=== PATIENT | male | born 1970 | race Two or more races ===

== ENCOUNTER 2024-08-18 17:13 | Emergency (ER) | payer BC, SELFPAY ==
[2024-08-18 17:19] VITALS: BP 135/79; PULSE 77; RESP 20; TEMP 37.4; O2SAT 95
--- NOTE | 2024-08-18 17:38 | PD.EDRME ---
Rapid Medical Screening Exam [facility] Arrival date/time: 08/18/24 17:13 Headache: Bilateral temporal poking sensation HPI ongoing intermittently for the past 3 days with persistent nausea particularly when drinking liquids, and light sensitivity. Waxes and wanes has a history of vestibular migraines and takes sumatriptan for it which did not provide the patient with relief. Onset after being in the sun 3 days ago. Patient is concerned about the headache and possible dehydration. Chief Complaint: Headache Time Seen by Provider: 08/18/24 17:37 Vital signs: Vital Signs Temperature 99.4 F 08/18/24 17:19 Pulse Rate 77 08/18/24 17:19 Respiratory Rate 20 08/18/24 17:19 Blood Pressure 135/79 H 08/18/24 17:19 Pulse Oximetry (%) 95 08/18/24 17:19 Oxygen Delivery Method Room Air 08/18/24 17:19
[2024-08-18 17:59] LABS: Basophils % (Auto) 0 % (0-2.5); Eosinophils % (Auto) 0 % (0-10); Immature Granulocytes % (Auto) 0 % (0-0); Immature Granulocytes Auto 0.05 Thou/mm3 (0.00-0.00); Lymphocytes # (Auto) 1.6 Thou/mm3 (1.0-4.8); Lymphocytes % (Auto) 13 % (10-50); Mean Corpuscular HGB Conc 34.9 g/dl (31.0-37.0); Mean Corpuscular Hemoglobin 30.1 pg (25.0-35.0); Mean Corpuscular Volume 86 fL (80-100); Monocytes # (Auto) 0.8 Thou/mm3 (0.0-0.8); Monocytes % (Auto) 6 % (0-12); Neutrophils # (Auto) 10.2 Thou/mm3 (1.8-7.7); Neutrophils % (Auto) 80 % (37-80); Nucleated Red Blood Cell % 0 /100 WBC (0); Platelet Count 294 Thou/mm3 (140-440); RDW Standard Deviation 39.5 fL (35.1-43.9); Red Blood Count 4.98 Miln/mm3 (4.50-5.90); White Blood Count 12.7 Thou/mm3 (3.8-10.6)
[2024-08-18 18:23] LABS: Alanine Aminotransferase 38 U/L (10-49); Albumin, Serum 4.7 gm/dL (3.5-5.0); Albumin/Globulin Ratio 1.4 (1.2-2.2); Alkaline Phosphatase 77 U/L (46-116); Anion Gap 11 (7-16); Aspartate Amino Transferase 29 U/L (0-34); BUN/Creatinine Ratio 17 Ratio (12-20); Bilirubin,Total 0.6 mg/dL (0.3-1.2); Blood Urea Nitrogen 17 mg/dL (9-23); Carbon Dioxide 25.2 mMol/L (20.0-31.0); Chloride 102 mMol/L (98-107); Globulin 3.4 gm/dL (2.3-3.5); Glucose 118 mg/dL (74-106); Osmolality,Calculated 278 (275-295); Potassium 4.4 mMol/L (3.4-5.1); Sodium 138 mMol/L (136-145); Total Protein 8.1 gm/dL (5.7-8.2); eGFR > 60 See Note
--- NOTE | 2024-08-18 19:22 | PD.EDHA ---
ED Headache RME/HPI General Chief Complaint: Headache Stated Complaint: QUINTERO, N/V Time Seen by Provider: 08/18/24 17:37 Arrival date/time: 08/18/24 17:13 Limitations: no limitations RME / HPI RME / HPI Narrative: Dr. West?s Main ED Evaluation on 08/18/24 at 1947: 53-year-old male presents with a 3-day history of intermittent bilateral temporal headache, described as a ?poking? sensation. Associated symptoms include persistent nausea, worsened with oral intake, and photophobia. Headache waxes and wanes, without significant relief from his prescribed sumatriptan used to treat his migraine headaches. He has a known history of vestibular migraines. Patient reports symptoms began after prolonged sun exposure 3 days ago. The patient denies this being the worst headache of his life. Related Data Home Medications ?Medication ?Instructions ?Recorded ?Confirmed omeprazole 20 mg capsule,delayed 20 mg PO QDAY ##0 12/14/16 02/21/23 release ibuprofen 800 mg tablet 800 mg PO TID PRN Pain 02/18/23 02/21/23 Held on 02/21/23. Instructions: Resume on 02/24/23. lisinopril 20 1 tab PO DAILY UD 02/18/23 02/21/23 mg-hydrochlorothiazide 12.5 mg tablet sumatriptan succinate 100 mg tablet 100 mg PO DAILY 02/18/23 02/18/23 tamsulosin 0.4 mg capsule 1 mg PO DAILY 02/18/23 02/21/23 Previous Rx's ?Medication ?Instructions ?Recorded meclizine 25 mg tablet 25 mg PO [id number] PRN dizziness #10 06/06/18 tabs Allergies Allergy/AdvReac Type Severity Reaction Status Date / Time morphine Allergy Vomiting Verified 02/21/23 07:28 codeine AdvReac Mild Nausea/Vomi Verified 02/21/23 07:28 tiing hydrocodone bit AdvReac Unknown Nausea/Vomi Verified 02/21/23 07:28 tiing Review of Systems Review of Systems Systems Reviewed: All systems reviewed, normal except as documented Past Medical History Past Medical History NEUROLOGIC: Positive Neurological Disorders and Migraine; Negative Seizures CARDIAC: Positive Cardiac Disorders and Hypertension; Negative Congestive Heart Failure RESPIRATORY: Negative Chronic Obstructive Pulmonary Disease (COPD) or Asthma GASTROINTESTINAL: Positive Gastrointestinal Disorders and Gastroesophageal Reflux Disease (heartburn) GENITOURINARY: Positive Kidney Stones; Negative Genitourinary Disorders or Renal Disease REPRODUCTIVE: Negative Breast Cancer MUSCULOSKELETAL: Positive Degenerative Disk Disease; Negative Musculoskeletal Disorders ENT: Positive Ear Infection; Negative Eye Prosthesis ENDOCRINE: Negative Endocrine Disorders, Diabetes Mellitus Type 1 or Diabetes Mellitus Type 2 HEMATOLOGIC: Negative Blood Disorders or Sickle Cell Disease OTHER HISTORY: Positive Chicken Pox; Negative Hospitalization, Autoimmune Disease, Falls, Blood Transfusions, Anesthesia Reactions, Organ Transplant, MRSA, VRSA, Vancomycin-Resistant Enterococci, Clostridium Difficile, Cancer or Breast Cancer Family History FAMILY HISTORY: Positive Family Cardiac Disorders and Family Surgery; Negative Family Cancer or Family Anesthesia Reaction Surgical History SURGICAL: Positive Ear Surgery, Tympanostomy Tube and Nose Surgery; Negative Cardiac Surgery, Endocrine Surgery, Abdominal Surgery, Joint Replacement, Neurologic Surgery, Mastectomy, Vasectomy or Organ Transplant Social History SMOKING STATUS: Never smoker ED Exam General Limitations: Present no limitations General appearance: Present alert and in no apparent distress Head Head exam: Present atraumatic Eye Eye exam: Present normal appearance, PERRL and EOMI ENT ENT exam: Present normal exam, normal oropharynx and mucous membranes moist Neck Neck exam: Present normal inspection, full ROM and trachea midline Chest Chest inspection: Present normal inspection and symmetric chest wall rise Respiratory Respiratory exam: Present normal lung sounds bilaterally Cardiovascular Cardiovascular exam: Present regular rate, normal rhythm and normal heart sounds Abdominal Exam Abdominal exam: Present soft and normal bowel sounds Extremities Exam Extremities exam: Present normal inspection and full ROM Back Exam Back exam: Present normal inspection and full ROM Neurological Exam Neurological exam: Present alert, oriented X3 and CN II-XII intact Psychiatric Psychiatric exam: Present normal affect and normal mood Skin Skin exam: Present warm, dry, intact and normal color Course Course Course Narrative: Patient triaged upon arrival. RME completed and initial orders placed by midlevel provider, including labs and medications. 1913 ? Patient moved to Room 17. 1919 ? Chart and preliminary lab results reviewed; IV fluids ordered. 1946 ? Patient evaluated by me. Quality Measures none Orders Category Date Time Status Saline [Insert IV] NOW Care 08/18/24 17:37 Completed CBC Stat Lab 08/18/24 17:49 Completed CMP [Comprehensive Metabolic Panel] Stat Lab 08/18/24 17:49 Completed DiphenhydrAMINE INJ [Benadryl Inj] Med 08/18/24 17:37 Discontinued 25 mg IVP X1 ONE Ketorolac Inj [Toradol Inj] Med 08/18/24 17:37 Discontinued 30 mg IVP X1 ONE Prochlorperazine Inj [Compazine Inj] Med 08/18/24 17:37 Discontinued 10 mg IV X1 ONE Sodium Chloride 0.9% 1000 ml [Ns] 1,000 ml Med 08/18/24 19:20 Discontinued IV 999 mls/hr Vital Signs Vital signs: Vital Signs Temperature 99.4 F 08/18/24 17:19 Pulse Rate 77 08/18/24 17:19 Respiratory Rate 20 08/18/24 17:19 Blood Pressure 135/79 H 08/18/24 17:19 Pulse Oximetry (%) 95 08/18/24 17:19 Oxygen Delivery Method Room Air 08/18/24 17:19 Headache MDM Narrative MDM Narrative:: 53-year-old male with history of vestibular migraines presents with a 3-day history of bilateral temporal headache, nausea worsened by oral intake, and photophobia. No relief with home sumatriptan. Denies worst headache of life. Concerned about dehydration. Photophobia is noted. Differential diagnoses include typical migraine, worsening migraine, dehydration, and electrolyte imbalance. The patient does not report this as the worst headache of his life, r/o subarachnoid hemorrhage. Placed in ED observation for monitoring and symptomatic management. 2253 Patient re-evaluated, in no acute distress. Headache has improved. Stable for discharge. Patient amendable to plan. Scribe Attestation: Carmelo Saba am scribing for and in the presence of Dr. West. Provider Notation: Although this document has been carefully reviewed, there may still be some phonetic and other typographical errors. These errors are purely grammatical due to imperfections in the software program and should not be construed in any way to compromise the substance of the patient's medical care during this visit. Patient data External records reviewed:: [facility] previous records Clinical information provided by:: patient Social determinants that could affect healthcare access:: none Patient has the following chronic illnesses:: see PMH How is presenting disease/condition affected by chronic disease/condition?: exacerbated by Evaluation data The following diagnostics were reviewed and interpreted by me:: lab results Lab and/or radiology exams considered but not ordered:: n/a Interpretation Summary: WBC 12.7 Medications / Prescriptions Medications or Prescriptions considered but not ordered:: n/a Medication administrations:: Medication Administration History Discontinued Medications Diphenhydramine HCl (Diphenhydramine Inj 50 Mg/Ml Vial) 25 mg IVP X1 ONE Stop: 08/18/24 17:38 Last Admin: 08/18/24 20:03 Dose: 25 mg Documented By: CCT Sodium Chloride (Ns) 1,000 mls @ 999 mls/hr IV .Q1H1M ONE Stop: 08/18/24 20:20 Last Infusion: 08/18/24 21:11 Dose: Infused Documented By: Admin: 08/18/24 20:04 Dose: 999 mls/hr Documented By: CCT Ketorolac Tromethamine (Ketorolac Inj 30 Mg/Ml Vial) 30 mg IVP X1 ONE Stop: 08/18/24 17:38 Last Admin: 08/18/24 20:04 Dose: 30 mg Documented By: CCT Prochlorperazine Edisylate (Prochlorperazine Inj 5 Mg/Ml Vial 2 Ml) 10 mg IV X1 ONE; Protocol Stop: 08/18/24 17:38 Last Admin: 08/18/24 20:04 Dose: 10 mg Documented By: CCT as above, if any Consultations Consultation(s) initiated? (list below): No Diagnosis Differential diagnosis headache: other (see MDM) Most likely diagnosis given after review of the tests above:: see clinical impression below Admission Indicated Admission indicated?: not indicated Admission Request Was there a request for admission?: No Disposition Plan Disposition Plan: Discharge Discharge Attestation Discharge Attestation: The patient and all family members were given an opportunity to ask questions and understood the discharge instructions. Discharge instructions specifically effects, indications for sooner follow up or return to the emergency department, and the expected course of current diagnosis. Patient condition: Stable Discharge Plan Plan Patient Disposition: HOME (Self Care) Patient condition on transfer: Stable Prescriptions/Referrals Prescriptions/Med Rec: No Action omeprazole 20 MG capsule,delayed release(DR/EC) 20 mg PO QDAY Qty: 0 meclizine 25 mg tablet 25 mg PO [id number] PRN (Reason: dizziness) Qty: 10 0RF sumatriptan succinate 100 mg tablet 100 mg PO DAILY Patient Comments: PLEASE SEE ATTACHED FOR DETAILED DIRECTIONS lisinopril-hydrochlorothiazide 20-12.5 mg tablet 1 tab PO DAILY UD Patient Comments: TAKE 1 TABLET BY MOUTH EVERY DAY ibuprofen 800 mg tablet 800 mg PO TID PRN (Reason: Pain) tamsulosin 0.4 mg capsule 1 mg PO DAILY Referrals: Santi Bruce MD [Primary Care Provider] - In 1 week Problem List Clinical Impression: Headache, migraine Patient/Caregiver Discharge Instructions Education Materials: ED Headache, Migraine, Classic Additional Instructions: Please take your medications as per your primary care for your migraine headaches that you have at home. Return to emergency department for any worsening symptoms or any other concerns You can take [id number] Tylenol 650 mg as needed in addition to your regular medications. For the next 48 hours. Stay hydrated with Pedialyte and/or Gatorade. Print Language: Namibian Stand Alone Forms: [facility] Info., Patient Portal Info Letter
[2024-08-18 19:26] VITALS: BP 136/77; PULSE 75; RESP 18; TEMP 37.2; O2SAT 92
[2024-08-18] MEDS: DiphenhydrAMINE INJ 50 MG/ML VIAL 25 MG IVP (20:03)
[2024-08-18] MEDS: KETOROLAC INJ 30 MG/ML VIAL IVP (20:04)
[2024-08-18] MEDS: PROCHLORPERAZINE INJ 5 MG/ML VIAL 2 ML 10 MG IV (20:04)
[2024-08-18] MEDS: SODIUM CHLORIDE 0.9% 1000 ML 1,000 ML 999 ML IV (20:04)
[2024-08-18 22:54] VITALS: BP 123/70; PULSE 61; RESP 16; TEMP 36.9; O2SAT 94
== END 2024-08-18 23:25 | disposition home or self-care (01) ==
PROVIDERS: Registered Nurse General Practice; Emergency Provider Emergency Medicine; PCP Family Medicine
DX: G43.909 Migraine, unspecified, not intractable, without status migrainosus (principal)
CPT/HCPCS: 36415; 80053; 85025; 96361; 96374; 96375; 99284; J0780; J1200; J1885; J7030

== ENCOUNTER 2024-08-20 04:05 | Emergency (ER) | payer BC, SELFPAY ==
[2024-08-20 04:08] VITALS: BMI 44.2
[2024-08-20 04:18] VITALS: BP 137/88; PULSE 68; RESP 18; TEMP 36.8; O2SAT 96
--- NOTE | 2024-08-20 04:41 | PD.EDRME ---
Rapid Medical Screening Exam RME Arrival date/time: 08/20/24 04:05 53 year old male present to ED for c/o of headache for 3 days I have greeted and performed a focused initial assessment of this patient. A comprehensive ED assessment and evaluation of the patient, analysis of all test results, and completion of the medical decision making process will be conducted by additional ED providers. Chief Complaint: Headache Time Seen by Provider: 08/20/24 04:12 Vital signs: Vital Signs Temperature 98.2 F 08/20/24 04:18 Pulse Rate 68 08/20/24 04:18 Respiratory Rate 18 08/20/24 04:18 Blood Pressure 137/88 H 08/20/24 04:18 Pulse Oximetry (%) 96 08/20/24 04:18 Oxygen Delivery Method Room Air 08/20/24 04:18
--- NOTE | 2024-08-20 04:42 | XR_ITS ---
Examination: CT brain head without contrast. 2-D sagittal coronal reconstructions Date and time of exam:August 20, 2024 at 0516 hours Comparison June 06, 2018 INDICATIONS: Headaches beginning 4 days ago with nausea vomiting CTDI: vol (mGy):60.4 DLP: (mGycm):1213 Technique: Multiple CT axial sections of the brain have been obtained, 5 mm slice thickness. Contrast has not been administered. 2-D sagittal, coronal reconstructions have been obtained Low dose protocols were performed. One or more of the following dose reduction techniques were used; automated exposure control, adjustment of the mA and/or KV according to patient size, use of iterative reconstruction technique. 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
--- NOTE | 2024-08-20 04:43 | EKG_ITS ---
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
[2024-08-20 05:44] VITALS: BP 126/57; PULSE 65; RESP 18; TEMP 36.7; O2SAT 95
--- NOTE | 2024-08-20 05:45 | PC.NURSE ---
PT ALERT AND ORIENTED CAME TO ER WITH FROM HOME FOR COMPLAINTS OF HEADACHE THAT STARTED 3 DAYS AGO WITH NAUSEA AND VOMITING. PT REPORTS HEADACHE GOT WORSE TODAY, HAS TINGLING SENSATION TO BILATERAL CHRISTIANITY AREA. ALSO COMPLAINTS OF WEAKNESS ON LEFT SIDE. PT REPORTS HX OF MIGRAINES, STATES MEDICATION IS NOT HELPING.
[2024-08-20 05:59] LABS: Basophils % (Auto) 0 % (0-2.5); Eosinophils % (Auto) 0 % (0-10); Hematocrit 44.1 % (41.0-53.0); Hemoglobin 15.8 g/dL (13.5-16.0); Immature Granulocytes % (Auto) 0 % (0-0); Immature Granulocytes Auto 0.06 Thou/mm3 (0.00-0.00); Lymphocytes # (Auto) 0.7 Thou/mm3 (1.0-4.8); Lymphocytes % (Auto) 5 % (10-50); Mean Corpuscular HGB Conc 35.8 g/dl (31.0-37.0); Mean Corpuscular Hemoglobin 30.2 pg (25.0-35.0); Mean Corpuscular Volume 84 fL (80-100); Monocytes # (Auto) 0.6 Thou/mm3 (0.0-0.8); Monocytes % (Auto) 4 % (0-12); Neutrophils # (Auto) 12.7 Thou/mm3 (1.8-7.7); Neutrophils % (Auto) 90 % (37-80); Nucleated Red Blood Cell % 0 /100 WBC (0); Platelet Count 285 Thou/mm3 (140-440); RDW Standard Deviation 38.9 fL (35.1-43.9); Red Blood Count 5.24 Miln/mm3 (4.50-5.90)
[2024-08-20 06:05] LABS: Sed Rate (ESR) 21 mm/hr (0-20)
[2024-08-20 06:34] VITALS: BP 139/70; PULSE 68; RESP 20; TEMP 36.8; O2SAT 95
[2024-08-20 06:34] LABS: Alanine Aminotransferase 34 U/L (10-49); Albumin, Serum 4.8 gm/dL (3.5-5.0); Albumin/Globulin Ratio 1.4 (1.2-2.2); Alkaline Phosphatase 84 U/L (46-116); Anion Gap 9 (7-16); Aspartate Amino Transferase 24 U/L (0-34); BUN/Creatinine Ratio 16 Ratio (12-20); Bilirubin,Total 0.6 mg/dL (0.3-1.2); Blood Urea Nitrogen 18 mg/dL (9-23); C-Reactive Protein 1.4 mg/dL (0.0-0.9); Calcium 9.5 mg/dL (8.3-10.6); Calcium (Corrected) 9.5 mg/dL (8.5-10.1); Chloride 103 mMol/L (98-107); Creatinine (Component) 1.1 mg/dL (0.6-1.3); Estimated Creatinine Clearance 89.4 mL/min (>60); Globulin 3.4 gm/dL (2.3-3.5); Glucose 137 mg/dL (74-106); Osmolality,Calculated 277 (275-295); Sodium 137 mMol/L (136-145); Total Protein 8.2 gm/dL (5.7-8.2); Troponin I < 0.020 ng/mL (0.0-0.045); eGFR > 60 See Note
--- NOTE | 2024-08-20 06:37 | PD.EDHA ---
ED Headache RME/HPI General Chief Complaint: Headache Stated Complaint: headache Time Seen by Provider: 08/20/24 04:12 Arrival date/time: 08/20/24 04:05 RME / HPI RME / HPI Narrative: 08/20/24 04:05 53 year old male present to ED for c/o of headache for 3 days I have greeted and performed a focused initial assessment of this patient. A comprehensive ED assessment and evaluation of the patient, analysis of all test results, and completion of the medical decision making process will be conducted by additional ED providers. DR. PLASCENCIA MAIN ED EVALUATION: 53-year-old male patient complaining of right sided headache and subjective left-sided weakness. Patient states he has been seen for similar symptoms associated with migraine headaches. He is on sumatriptan and sees a neurologist at [facility]. Seen here yesterday for headache, treated and discharged. Returning today with worsening headache. Denies vomiting. States he feels weak on the left side including upper and lower extremities. He states he has had these symptoms before which were previously attributed to migraine headache. Denies vision changes. Patient is right hand dominant. Related Data Home Medications ?Medication ?Instructions ?Recorded ?Confirmed omeprazole 20 mg capsule,delayed 20 mg PO QDAY ##0 12/14/16 02/21/23 release ibuprofen 800 mg tablet 800 mg PO TID PRN Pain 02/18/23 02/21/23 Held on 02/21/23. Instructions: Resume on 02/24/23. lisinopril 20 1 tab PO DAILY UD 02/18/23 02/21/23 mg-hydrochlorothiazide 12.5 mg tablet sumatriptan succinate 100 mg tablet 100 mg PO DAILY 02/18/23 02/18/23 tamsulosin 0.4 mg capsule 1 mg PO DAILY 02/18/23 02/21/23 Previous Rx's ?Medication ?Instructions ?Recorded meclizine 25 mg tablet 25 mg PO [id number] PRN dizziness #10 06/06/18 tabs Allergies Allergy/AdvReac Type Severity Reaction Status Date / Time codeine AdvReac Mild Nausea/Vomi Verified 08/20/24 07:56 tiing hydrocodone bit AdvReac Mild Nausea/Vomi Verified 08/20/24 07:56 tiing morphine AdvReac Mild Vomiting Verified 08/20/24 07:56 Review of Systems Review of Systems Systems Reviewed: All systems reviewed, normal except as documented Past Medical History Past Medical History NEUROLOGIC: Positive Neurological Disorders and Migraine; Negative Seizures CARDIAC: Positive Cardiac Disorders and Hypertension; Negative Congestive Heart Failure RESPIRATORY: Negative Chronic Obstructive Pulmonary Disease (COPD) or Asthma GASTROINTESTINAL: Positive Gastrointestinal Disorders and Gastroesophageal Reflux Disease GENITOURINARY: Positive Kidney Stones; Negative Genitourinary Disorders or Renal Disease REPRODUCTIVE: Negative Breast Cancer MUSCULOSKELETAL: Positive Degenerative Disk Disease; Negative Musculoskeletal Disorders ENT: Positive Ear Infection; Negative Eye Prosthesis ENDOCRINE: Negative Endocrine Disorders, Diabetes Mellitus Type 1 or Diabetes Mellitus Type 2 HEMATOLOGIC: Negative Blood Disorders or Sickle Cell Disease OTHER HISTORY: Positive Chicken Pox; Negative Hospitalization, Autoimmune Disease, Falls, Blood Transfusions, Anesthesia Reactions, Organ Transplant, MRSA, VRSA, Vancomycin-Resistant Enterococci, Clostridium Difficile, Cancer or Breast Cancer Family History FAMILY HISTORY: Positive Family Cardiac Disorders and Family Surgery; Negative Family Cancer or Family Anesthesia Reaction Surgical History SURGICAL: Positive Ear Surgery, Tympanostomy Tube and Nose Surgery; Negative Cardiac Surgery, Endocrine Surgery, Abdominal Surgery, Joint Replacement, Neurologic Surgery, Mastectomy, Vasectomy or Organ Transplant Social History SMOKING STATUS: Never smoker SUBSTANCE USE: does not use ALCOHOL: Never ED Exam Narrative Physical exam: GENERAL APPEARANCE: alert and oriented x 4, well-developed, well-nourished, appears in pain HEENT: Normocephalic, atraumatic; pupils equal, round, reactive to light; EOMI; mucous membranes pink, moist; oropharynx clear NECK: Supple LUNGS: CTABL; no wheezes, no rales, no rhonchi HEART: Regular rate, regular rhythm; normal S1, S2; no murmurs ABDOMEN: non distended; normal BS; soft, no tenderness, no guarding, no rebound; no masses, no organomegaly, no hernia BACK: no CVA tenderness EXTREMITIES: atraumatic; no edema NEUROLOGIC: awake; alert and oriented x4; cranial nerves II-XII grossly intact; patient lying in left lateral decubitus position with Grammas complaining of severe headache; strength 5 out of 5 upper extremities; clonus 3 beats bilaterally lower extremities; unable to stand patient at this time for lower extremity examination and gait examination secondary to severe headache PSYCHIATRIC: appropriate mood and affect SKIN: warm, dry, normal color; no rashes Course Course Course Narrative: Plan for additional neurologic examination after pain medications administered Quality Measures none Orders Category Date Time Status Bedside COVID-19 Antigen Test NOW Care 08/20/24 04:42 Completed Bedside Influenza A&B Antigen Test NOW Care 08/20/24 04:42 Completed EKG (ED ONLY) *Do not use* NOW Care 08/20/24 04:43 Completed IV [Insert IV] NOW Care 08/20/24 05:59 Completed Referral - Magistrate Judge Stat Cons 08/20/24 06:[address] head/brain wo con Stat Exams 08/20/24 04:42 Completed EKG (ED Only) Stat Exams 08/20/24 04:43 Draft CBC Stat Lab 08/20/24 05:53 Completed CMP [Comprehensive Metabolic Panel] Stat Lab 08/20/24 05:53 Completed CRP [C-Reactive Protein] Stat Lab 08/20/24 05:53 Completed ESR [Sed Rate (ESR)] Stat Lab 08/20/24 05:53 Completed Troponin I Stat Lab 08/20/24 05:53 Completed Dexamethasone Inj [Decadron Inj] Med 08/20/24 06:30 Discontinued 8 mg IV X1 ONE DiphenhydrAMINE INJ [Benadryl Inj] Med 08/20/24 04:42 Discontinued 12.5 mg IVP X1 ONE HYDROmorphone INJ [Dilaudid Inj] Med 08/20/24 07:17 Discontinued 1 mg IVP X1 ONE HYDROmorphone INJ [Dilaudid Inj] Med 08/20/24 08:11 Discontinued 1 mg IVP X1 ONE Ondansetron Inj [Zofran Inj] Med 08/20/24 07:17 Discontinued 4 mg IV X1 ONE Prochlorperazine Inj [Compazine Inj] Med 08/20/24 04:42 Discontinued 10 mg IV X1 ONE Sodium Chloride 0.9% 1000 ml [Ns] 1,000 ml Med 08/20/24 04:43 Discontinued IV 999 mls/hr Vital Signs Vital signs: Vital Signs Temperature 98.2 F 08/20/24 04:18 Pulse Rate 68 08/20/24 04:18 Respiratory Rate 18 08/20/24 04:18 Blood Pressure 137/88 H 08/20/24 04:18 Pulse Oximetry (%) 96 08/20/24 04:18 Oxygen Delivery Method Room Air 08/20/24 04:18 Headache MDM Narrative MDM Narrative:: Received call from teleradiology regarding CT scan results. Right occipital lobe mass with surrounding edema, mass effect, midline shift 1.2 cm. Nilda Saba am scribing for and in the presence of Dr. Plascencia. Patient data External records reviewed:: [facility] previous records Clinical information provided by:: patient and spouse Social determinants that could affect healthcare access:: none Patient has the following chronic illnesses:: Migraine headaches, hypertension How is presenting disease/condition affected by chronic disease/condition?: uneffected by Evaluation data The following diagnostics were reviewed and interpreted by me:: radiology exam(s) (CT brain reviewed and interpreted by me shows large right-sided mass with significant edema and significant midline shift) Lab and/or radiology exams considered but not ordered:: Considered MRI brain Interpretation Summary: As above Medications / Prescriptions Medications or Prescriptions considered but not ordered:: None Medication administrations:: Medication Administration History Discontinued Medications Dexamethasone Sodium Phosphate (Dexamethasone Sod Phos Inj 10 Mg/Ml Vial) 8 mg IV X1 ONE Stop: 08/20/24 06:31 Last Admin: 08/20/24 07:30 Dose: 8 mg Documented By: GIN Diphenhydramine HCl (Diphenhydramine Inj 50 Mg/Ml Vial) 12.5 mg IVP X1 ONE Stop: 08/20/24 04:43 Last Admin: 08/20/24 06:37 Dose: Not Given Documented By: MARGI Non-Admin Reason: Cancelled by Provider Hydromorphone HCl (Hydromorphone Inj 2 Mg/Ml Vial) 1 mg IVP X1 ONE Stop: 08/20/24 07:18 Last Admin: 08/20/24 07:39 Dose: 1 mg Documented By: GIN Hydromorphone HCl (Hydromorphone Inj 2 Mg/Ml Vial) 1 mg IVP X1 ONE Stop: 08/20/24 08:12 Last Admin: 08/20/24 08:18 Dose: 1 mg Documented By: GIN Sodium Chloride (Ns) 1,000 mls @ 999 mls/hr IV .Q1H1M ONE Stop: 08/20/24 05:43 Last Admin: 08/20/24 06:37 Dose: Not Given Documented By: MARGI Non-Admin Reason: Cancelled by Provider Ondansetron HCl (Ondansetron Inj 2 Mg/Ml Inj 2 Ml) 4 mg IV X1 ONE Stop: 08/20/24 07:18 Last Admin: 08/20/24 07:38 Dose: 4 mg Documented By: GIN Prochlorperazine Edisylate (Prochlorperazine Inj 5 Mg/Ml Vial 2 Ml) 10 mg IV X1 ONE; Protocol Stop: 08/20/24 04:43 Last Admin: 08/20/24 06:37 Dose: Not Given Documented By: MARGI Non-Admin Reason: Cancelled by Provider As above Consultations Consultation(s) initiated? (list below): Yes Consultation #1 (Physician, Specialty, Details): Call out for neurosurgery consult and transfer request [facility] at capacity [phone]: Discussed with [facility]. Transfer center will present to neurosurgery. Diagnosis Differential diagnosis headache: migraine, tension headache, subarachnoid hemorrhage, headache, meningitis and other (Mass) Most likely diagnosis given after review of the tests above:: Mass Admission Indicated Admission indicated?: indicated Admission Request Was there a request for admission?: No Disposition Plan Disposition Plan: Transfer Discharge Plan Plan Patient Disposition: [facility] Pt Being Transferred to: [facility] Service Needed for Transfer: Neurosurgery Prescriptions/Referrals Prescriptions/Med Rec: No Action omeprazole 20 MG capsule,delayed release(DR/EC) 20 mg PO QDAY Qty: 0 meclizine 25 mg tablet 25 mg PO [id number] PRN (Reason: dizziness) Qty: 10 0RF sumatriptan succinate 100 mg tablet 100 mg PO DAILY Patient Comments: PLEASE SEE ATTACHED FOR DETAILED DIRECTIONS lisinopril-hydrochlorothiazide 20-12.5 mg tablet 1 tab PO DAILY UD Patient Comments: TAKE 1 TABLET BY MOUTH EVERY DAY ibuprofen 800 mg tablet 800 mg PO TID PRN (Reason: Pain) tamsulosin 0.4 mg capsule 1 mg PO DAILY Referrals: No Primary/Family,Physician [Referring Provider] - In 1 week Problem List Clinical Impression: Occipital mass, Headache, Midline shift of brain Patient/Caregiver Discharge Instructions Print Language: Divehi Stand Alone Forms: [facility] Award Info., Patient Portal Info Letter
--- NOTE | 2024-08-20 06:37 | PC.NURSE ---
PER VERBAL FROM DR. PLASCENCIA DO NOT GIVE MEDICATIONS PREVIOUSLY ORDERED.-BENADRYL, COMPAZINE AND 1L NS BOLUS.
--- NOTE | 2024-08-20 06:50 | PC.NURSE ---
[facility] FAXED PAPERWORK FOR POSSIBLE NEUROSURGERY, SPOKE WITH VIN
--- NOTE | 2024-08-20 07:05 | PC.NURSE ---
[facility] DECLINED DUE TO CAPACITY, SPOKE TO VIN
--- NOTE | 2024-08-20 07:12 | PC.CC ---
Addendum entered by Mela Dodge RN 08/20/24 07:54: Set up stat transfer for patient Addendum entered by Mela Dodge RN 08/20/24 07:37: Pt accepted to [facility] by Bindu under Dr. Solorio ER to ER report to be called to [phone]. Chart printed, cd in envelope, all signatures done Original Note: Spoke to Bindu at [facility] fro possible transfer, chart faxed, images pushed. Bindu transferred to ER to speak with MD. CD made.
[2024-08-20 07:22] VITALS: BP 134/78; PULSE 69; RESP 21; TEMP 38.3; O2SAT 94
[2024-08-20] MEDS: DEXAMETHASONE SOD PHOS INJ 10 MG/ML VIAL 8 MG IV (07:30)
[2024-08-20] MEDS: ONDANSETRON INJ 2 MG/ML INJ 2 ML 4 MG IV (07:38)
[2024-08-20] MEDS: HYDROmorphone INJ 2 MG/ML VIAL 1 MG IVP ×2 (07:39→08:18)
[2024-08-20 08:03] VITALS: PULSE 62
[2024-08-20 08:23] VITALS: BP 138/74; PULSE 74; RESP 22; TEMP 38.3; O2SAT 94
== END 2024-08-20 08:27 | disposition short-term general hospital (02) ==
PROVIDERS: Physician Assistant; Emergency Provider Emergency Medicine; PCP Family Medicine
DX: R22.0 Localized swelling, mass and lump, head (principal); Z75.1 Person awaiting admission to adequate facility elsewhere
CPT/HCPCS: 36415; 70450; 80053; 84484; 85025; 85652; 86140; 87400; 87811; 93005; 96374; 96375; 99285; J1100; J2405; J3490